=== PATIENT | male | born 1970 | race Caucasian/White ===

== ENCOUNTER 2019-07-25 15:59 | Emergency (ER) | payer OTHER, MEDICAID ==
[~2019-07-25] VITALS: Ht 167.6 cm; Wt 65.8 kg
[~2019-07-25 15:59] MED LIST: ALLOPURINOL100 MG PO; HYDROCODONE BIT1 T11 PO; MOTRIN800 MG PO; NEXIUM40 MG PO; ZANTAC 150150 MG PO
[2019-07-25] MEDS ORDERED: SEPTDS PO (16:40)
== END 2019-07-25 16:56 | disposition home or self-care (01) ==
LOC: ED 15:59
DX: L03.115 Cellulitis of right lower limb (principal); K21.9 Gastro-esophageal reflux disease without esophagitis; Z88.5 Allergy status to narcotic agent; Z79.899 Other long term (current) drug therapy; Z87.442 Personal history of urinary calculi

== ENCOUNTER 2019-07-27 18:09 | Inpatient (IN) | payer OTHER, MEDICAID ==
[~2019-07-27] VITALS: Ht 170.2 cm; Wt 69.7 kg
[~2019-07-27 18:09] MED LIST changes: +SEPTDS PO
[2019-07-27 18:18] VITALS: BP 144/86
[2019-07-27 20:12] LABS: BASO # 0.1 10*3/uL (0.0-0.1); BASO % 0.3 % (0.0-1.0); EOS # 0.2 10*3/uL (0.0-0.4); EOS % 1.1 % (1.0-4.0); HEMATOCRIT 42.4 % (42.0-52.0); HEMOGLOBIN 14.5 g/dl (14.0-18.0); LYMPH # 2.6 10*3/uL (1.3-4.4); LYMPH % 15.3 % (27.0-41.0); MEAN CELL VOLUME 97.9 fl (80.0-94.0); MEAN CORPUSCULAR HGB 33.5 pg (27.0-31.0); MEAN CORPUSCULAR HGB CONC 34.2 g/dl (33.0-37.0); MEAN PLATELET VOLUME 10.1 fl (9.6-12.3); MONO # 1.4 10*3/uL (0.1-1.0); MONO % 8.2 % (3.0-9.0); NEUT # 12.5 10*3/uL (2.3-7.9); NEUT % 74.6 % (47.0-73.0); PLATELET COUNT AUTOMATED 280 10*3/uL (130-400); RED BLOOD COUNT 4.33 10*6/uL (4.50-5.90); RED CELL DISTRI WIDTH 12.2 % (0-14.5); WHITE BLOOD COUNT 16.8 10*3/uL (4.8-10.8)
[2019-07-27 20:28] LABS: ALBUMIN 3.8 gm/dl (3.1-4.5); ALKALINE PHOSPHATASE 74 U/L (45-117); BUN 10 mg/dl (7-24); CHLORIDE 103 mmol/L (98-107); CREATININE 1.03 mg/dL (0.70-1.30); POTASSIUM 4.2 mmol/L (3.5-5.1); SGOT/AST 14 IU/L (3-35); SGPT/ALT 27 U/L (12-78); SODIUM 137 mmol/L (136-145); TOTAL PROTEIN 7.7 gm/dL (6.4-8.2)
--- NOTE | 2019-07-27 22:21 | NUR ---
ATTEMPTED TO CALL RN FOR ADMISSION. PHONE NOT ANSWERED. I WILL ATTEMPT TO CALL BACK .
[2019-07-27 23:30] VITALS: BP 119/78
--- NOTE | 2019-07-27 23:30 | NUR ---
A 48, admitted to , under the services of NICOLA Mckeon DO with a diagnosis of CELLULITIS OF THE RIGHT LEG, ABSCESS. Chief complaint is ASCESS. Patient arrived via stretcher from ER. Initial assessment completed. Vital signs taken and recorded. NICOLA MCKEON DO notified of admission to the unit. Orders received. See assessment for past medical history, medications and allergies. Patient and/or family oriented to unit. [address] visitation policy reviewed. Clothing/patient valuable form completed. SHAYNA AKBAR
--- NOTE | 2019-07-28 00:19 | NUR ---
SEPSIS BOLUS TO BE ADMINISTERED AFTER BOLUS FROM ER IS DONE RUNNING.
[2019-07-28 07:14] LABS: BASO % 0.3 % (0.0-1.0); EOS # 0.3 10*3/uL (0.0-0.4); EOS % 2.2 % (1.0-4.0); HEMATOCRIT 37.1 % (42.0-52.0); HEMOGLOBIN 12.2 g/dl (14.0-18.0); LYMPH # 2.4 10*3/uL (1.3-4.4); LYMPH % 20.2 % (27.0-41.0); MEAN CELL VOLUME 99.5 fl (80.0-94.0); MEAN CORPUSCULAR HGB 32.7 pg (27.0-31.0); MEAN CORPUSCULAR HGB CONC 32.9 g/dl (33.0-37.0); MEAN PLATELET VOLUME 10.9 fl (9.6-12.3); MONO # 1.3 10*3/uL (0.1-1.0); MONO % 10.7 % (3.0-9.0); NEUT % 66.2 % (47.0-73.0); PLATELET COUNT AUTOMATED 253 10*3/uL (130-400); RED BLOOD COUNT 3.73 10*6/uL (4.50-5.90); RED CELL DISTRI WIDTH 12.4 % (0-14.5)
--- NOTE | 2019-07-28 07:22 | NUR ---
CARL CHILD [id number] Please refer to the physician's history and physical for past medical history, comorbid conditions, and allergies. Diagnosis: CELLULITIS OF RIGHT THIGH ABSCESS Harman Score: 23,LOW OR NO RISK WOUND DESCRIPTIONS: Wound Number: 1 Location of the wound: right upper lateral aspect of thigh Thickness: Full Size: 0.5cm x 0.5cm x <0.1cm Tunneling: none Undermining: none Sinus Tract: none Presence of Exudate: none Amount: None Color: Brown, yellow Odor: None Periwound Skin Appearance: Induration, erythema Wound edges: closed Pain (associated with wound): tender to touch How does patient state this happened? pt stated this started on he is unsure if he was bit by anything or how it actually happened Surface the patient is resting on: Position Pro SKIN PREVENTION RECOMMENDATION: 1. Pressure redistribution support surface as appropriate 2. Elevate heels 3. Remove boots/TEDS every shift and reapply 4. Head of bed 30 degrees as tolerated 5. Assess nutrition and hydration 6. Manage moisture 7. Avoid the use of containment devices while in bed 8. Use absorptive products on surfaces limit layers of linens on bed 9. Turn and reposition every 1-2 hours in bed and every 1 hour in chair as tolerated 10. Weight shifts every 15 minutes while up in chair 11. Offloading with pillows or device to keep heels elevated off bed 12. Monitor skin at least every shift 13. Inspect under medical devices twice a day WOUND TREATMENT RECOMMENDATIONS: Warm compress to right upper lateral aspect of thigh QID. Consult Dr. Agarwal for possible I&D.
--- NOTE | 2019-07-28 07:27 | NUR ---
CARL CHILD [id number] Please refer to the physician's history and physical for past medical history, comorbid conditions, and allergies. Diagnosis: CELLULITIS OF RIGHT THIGH ABSCESS Harman Score: 23,LOW OR NO RISK WOUND DESCRIPTIONS: Wound Number: 1 Location of the wound: right upper lateral aspect of thigh Thickness: Full Size: 0.5cm x 0.5cm x <0.1cm Tunneling: none Undermining: none Sinus Tract: none Presence of Exudate: none Amount: None Color: Brown, yellow Odor: None Periwound Skin Appearance: Induration, erythema 9.0cm x 9.5cm Wound edges: closed Pain (associated with wound): tender to touch How does patient state this happened? pt stated this started on he is unsure if he was bit by anything or how it actually happened Surface the patient is resting on: Position Pro SKIN PREVENTION RECOMMENDATION: 1. Pressure redistribution support surface as appropriate 2. Elevate heels 3. Remove boots/TEDS every shift and reapply 4. Head of bed 30 degrees as tolerated 5. Assess nutrition and hydration 6. Manage moisture 7. Avoid the use of containment devices while in bed 8. Use absorptive products on surfaces limit layers of linens on bed 9. Turn and reposition every 1-2 hours in bed and every 1 hour in chair as tolerated 10. Weight shifts every 15 minutes while up in chair 11. Offloading with pillows or device to keep heels elevated off bed 12. Monitor skin at least every shift 13. Inspect under medical devices twice a day WOUND TREATMENT RECOMMENDATIONS: Warm compress to right upper lateral aspect of thigh QID. Consult Dr. Agarwal for possible I&D.
[2019-07-28 07:39] LABS: BUN 11 mg/dl (7-24); CHLORIDE 108 mmol/L (98-107); CREATININE 0.96 mg/dL (0.70-1.30); SODIUM 139 mmol/L (136-145)
[2019-07-28 08:00] VITALS: BP 114/82
--- NOTE | 2019-07-28 09:00 | NUR ---
Software Integrator in to talk to patient. Patient states lives at home with family. There are 3 steps in the home. Physician: [facility] Home health services: none Patient's level of ADLs: INDEPENDENT Patient has working utilities: all working DME: none Follow-up physician's appointment after d/c: will be made by hospitalist nurse director upon discharge Does patient want to access PORTAL?: no Discharge plan discussed with patient, he states he lives at home, gets around fine, is independent in adls, he states he will return home when medically stable and denies any home needs, case management will follow. JOSE SCALES
[2019-07-28 09:15] VITALS: BP 116/83
--- NOTE | 2019-07-28 09:24 | NUR ---
Dr. Sheldon notified of wound care recommendations
[2019-07-28 09:48] VITALS: BP 99/60
[2019-07-28 10:05] VITALS: BP 100/70
[2019-07-28 10:20] VITALS: BP 101/59
[2019-07-28] MEDS ORDERED: SEPTDS PO (12:47)
--- NOTE | 2019-07-28 14:40 | NUR ---
Discharge instructions reviewed with patient/family. Patient receptive and verbalizes understanding. Follow-up care arranged. Written instructions given to patient/family. HEPLOCK DISCONTINUED. CLEAN GAUZE DRESSING APPLIED PRIOR TO D/C. AMBULATORY OFF FLOOR. MILTON PIZANO
== END 2019-07-28 14:40 | disposition home or self-care (01) | DRG 872 ==
LOC: ED 18:09 → 4E 20:37 → EDHOLD 20:37 → 4E 22:21
PROVIDERS: Family Medicine; Physician Assistant; ADMIT Internal Medicine
PROC: 0Y9C0ZZ Drainage of Right Upper Leg, Open Approach (ICD-10-PCS; principal; 2019-07-28)
DX: A41.9 Sepsis, unspecified organism (principal); L03.115 Cellulitis of right lower limb; L02.415 Cutaneous abscess of right lower limb; K21.9 Gastro-esophageal reflux disease without esophagitis; R03.0 Elevated blood-pressure reading, without diagnosis of hypertension; N20.0 Calculus of kidney; Z88.0 Allergy status to penicillin; Z87.442 Personal history of urinary calculi; Z82.49 Family history of ischemic heart disease and other diseases of the circulatory system; Z80.8 Family history of malignant neoplasm of other organs or systems; Z88.5 Allergy status to narcotic agent; Z79.899 Other long term (current) drug therapy